=== PATIENT | female | born 1955 | race Caucasian/White ===

== ENCOUNTER 2018-02-02 16:06 | Inpatient (IN) | payer MEDICARE, OTHER ==
[2018-02-02 17:59] LABS: ADD MAN DIFF? NO
[2018-02-02 18:08] LABS: WHITE BLOOD COUNT 7.9 10^3/ul (4.8-10.8)
[2018-02-02 18:08] LABS: BASOPHILS % 0.5 % (0.0-2.0); EOSINOPHILS # 0.2 10^3/ul (0.0-0.5); EOSINOPHILS % 2.8 % (0.0-7.0); HEMATOCRIT 37.7 % (37.0-47.0); LYMPHOCYTES # 2.2 10^3/ul (0.8-2.9); LYMPHOCYTES % 28.2 % (15.0-51.0); MEAN CORPUSCULAR HEMOGLOBIN 31.1 pg (29.0-33.0); MEAN CORPUSCULAR HGB CONC 34.5 g/dl (32.0-37.0); MEAN CORPUSCULAR VOLUME 90.2 fl (82.0-101.0); MEAN PLATELET VOLUME 10.2 fl (7.4-10.4); MONOCYTE # 0.4 10^3/ul (0.3-0.9); MONOCYTES % 5.6 % (0.0-11.0); NEUTROPHIL # 4.9 10^3/ul (1.6-7.5); NEUTROPHILS % 62.8 % (39.0-77.0); PLATELET COUNT 263 10^3/UL (140-415); RED BLOOD COUNT 4.18 10^6/ul (4.20-5.40); RED CELL DISTRIBUTION WIDTH 12.7 % (11.5-14.5)
[2018-02-02 18:19] LABS: ADD UMIC YES; UR ASCORBIC ACID NEGATIVE (NEGATIVE); UR BACTERIA FEW /HPF (NONE SEEN); UR BILIRUBIN (Dip) NEGATIVE (NEGATIVE); UR BLOOD (Dip) 1+ mg/dL (NEGATIVE); UR CLARITY CLEAR (CLEAR); UR COLOR YELLOW (YELLOW); UR GLUCOSE (Dip) 1+ mg/dL (NEGATIVE); UR KETONES (Dip) NEGATIVE (NEGATIVE); UR LEUKOCYTE ESTERASE (Dip) NEGATIVE Leu/ul (NEGATIVE); UR NITRITE (Dip) NEGATIVE (NEGATIVE); UR RBC 2 /HPF (0-5); UR SPECIFIC GRAVITY (Dip) 1.015 (1.003-1.030); UR SQUAMOUS EPITHELIAL CELL FEW /HPF (FEW); UR TOTAL PROTEIN (Dip) NEGATIVE (NEGATIVE); UR UROBILINOGEN (Dip) NEGATIVE (NEGATIVE); UR WBC 1 /HPF (0-5)
[2018-02-02 18:23] LABS: INR 0.89; PROTIME 12.1 Sec (11.9-14.9); PT RATIO 0.9
[2018-02-02 18:24] LABS: PARTIAL THROMBOPLASTIN TIME 31.9 Sec (23.0-35.0)
[2018-02-02 18:26] LABS: ANION GAP 16 (8-16); BLOOD UREA NITROGEN 24 mg/dl (7-20); CALCIUM 11.1 mg/dl (8.4-10.2); CARBON DIOXIDE 26 mmol/L (21-31); CHLORIDE 103 mmol/L (97-110); CHOL/HDL RATIO 3.4 RATIO; CHOLESTEROL 178 mg/dl (100-200); CREATININE 0.88 mg/dl (0.44-1.00); GLUCOSE 155 mg/dl (70-220); HDL CHOLESTEROL 52 mg/dl (35-98); LDL CHOLESTEROL,CALCULATED 73 mg/dl; POTASSIUM 3.5 mmol/L (3.5-5.1); SODIUM 141 mmol/L (135-144); TRIGLYCERIDES 264 mg/dl (0-149)
[2018-02-02 18:34] LABS: AMPHETAMINE/METHAMPHETAMINE Negative (NEGATIVE); BARBITURATES Negative (NEGATIVE); BENZODIAZEPINES Negative (NEGATIVE); CANNABINOIDS Negative (NEGATIVE); COCAINE Negative (NEGATIVE); OPIATES Negative (NEGATIVE)
[2018-02-02 18:37] LABS: TROPONIN-I < 0.012 ng/ml (0.000-0.120)
[2018-02-02 18:41] LABS: HEMOGLOBIN A1C 6.8 % (0-5.9)
[2018-02-02] MEDS ORDERED: GLUCAGON 1 MG INJ IM (20:30)
[2018-02-02] MEDS ORDERED: NACL 0.9% 3 ML SYG IV (20:30)
[2018-02-02] MEDS ORDERED: BISACODYL (EC) 5 MG TAB PO (20:30)
[2018-02-02] MEDS ORDERED: GLUCOSE GEL 15 GRAM TUBE PO ×2 (20:30)
[2018-02-02] MEDS ORDERED: ONDANSETRON 4 MG INJ IV (20:30)
[2018-02-02] MEDS ORDERED: DOCUSATE SODIUM 100 MG CAP PO (20:30)
[2018-02-02] MEDS ORDERED: GLUCOSE GEL 15 GRAM TUBE BUCCAL (20:30)
[2018-02-02] MEDS ORDERED: DEXTROSE 50% 50 ML SYRINGE IV ×2 (20:30)
[2018-02-02] MEDS ORDERED: hydrALAzine 20 MG INJ IV (20:30)
[2018-02-02] MEDS ORDERED: ACETAMINOPHEN 325 MG TAB PO (20:30)
[2018-02-02] MEDS: ASPIRIN 325 MG TAB PO (20:48)
[2018-02-02] MEDS: INSULIN ASPART [NOVOLOG] 3 ML PEN SC (21:00)
[2018-02-02] MEDS ORDERED: METOPROLOL (XL) 25 MG TAB PO (21:00)
[2018-02-03] MEDS: ACCU-CHEK XX (02:00)
[2018-02-03] MEDS: ATORVASTATIN 40 MG TAB PO ×2 (02:09→21:09)
[2018-02-03 06:02] LABS: ADD MAN DIFF? NO
[2018-02-03 06:03] LABS: WHITE BLOOD COUNT 7.1 10^3/ul (4.8-10.8)
[2018-02-03 06:03] LABS: BASOPHILS % 0.4 % (0.0-2.0); EOSINOPHILS # 0.3 10^3/ul (0.0-0.5); HEMATOCRIT 32.5 % (37.0-47.0); HEMOGLOBIN 11.2 g/dl (12.0-16.0); LYMPHOCYTES # 3.1 10^3/ul (0.8-2.9); LYMPHOCYTES % 43.7 % (15.0-51.0); MEAN CORPUSCULAR HGB CONC 34.5 g/dl (32.0-37.0); MEAN PLATELET VOLUME 10.3 fl (7.4-10.4); MONOCYTE # 0.5 10^3/ul (0.3-0.9); MONOCYTES % 7.4 % (0.0-11.0); NEUTROPHIL # 3.1 10^3/ul (1.6-7.5); NEUTROPHILS % 44.4 % (39.0-77.0); PLATELET COUNT 206 10^3/UL (140-415); RED BLOOD COUNT 3.61 10^6/ul (4.20-5.40); RED CELL DISTRIBUTION WIDTH 12.8 % (11.5-14.5)
[2018-02-03 06:41] LABS: ALANINE AMINOTRANSFERASE 37 IU/L (13-69); ALBUMIN 3.1 g/dl (3.3-4.9); ALBUMIN/GLOBULIN RATIO 1.03; ALKALINE PHOSPHATASE 75 IU/L (42-121); ANION GAP 9 (8-16); ASPARTATE AMINO TRANSFERASE 20 IU/L (15-46); BILIRUBIN,INDIRECT 0.1 mg/dl (0-1.1); BILIRUBIN,TOTAL 0.1 mg/dl (0.2-1.3); BLOOD UREA NITROGEN 25 mg/dl (7-20); CALCIUM 9.8 mg/dl (8.4-10.2); CARBON DIOXIDE 31 mmol/L (21-31); CHLORIDE 106 mmol/L (97-110); CREATININE 0.79 mg/dl (0.44-1.00); GLUCOSE 152 mg/dl (70-220); MAGNESIUM 1.5 mg/dl (1.7-2.5); POTASSIUM 3.4 mmol/L (3.5-5.1); SODIUM 143 mmol/L (135-144); TOTAL PROTEIN 6.1 g/dl (6.1-8.1)
[2018-02-03] MEDS: CALCIUM/VITAMIN D (500/200) TAB PO (08:07)
[2018-02-03] MEDS: ASPIRIN (EC) 81 MG TAB PO (08:07)
[2018-02-03] MEDS: INSULIN ASPART [NOVOLOG] 3 ML PEN SC ×4 (08:56→21:00)
[2018-02-03 09:13] LABS: HEMOGLOBIN A1C 6.9 % (0-5.9)
[2018-02-03] MEDS: INFLUENZA VIRUS VACCINE 0.5 ML (DISPENSING) IM* (14:37)
[2018-02-03] MEDS: MAGNESIUM SULFATE 2 GM/50 ML 50 ML IVPB (14:44)
[2018-02-03] MEDS: LORAZEPAM 2 MG INJ IV (14:44)
[2018-02-03] MEDS: METOPROLOL (XL) 25 MG TAB PO (21:10)
[2018-02-03] MEDS: predniSONE 20 MG TAB PO (21:10)
[2018-02-04] MEDS: ACCU-CHEK XX (02:00)
[2018-02-04 06:34] LABS: BLOOD UREA NITROGEN 29 mg/dl (7-20); CALCIUM 9.5 mg/dl (8.4-10.2); CARBON DIOXIDE 24 mmol/L (21-31); CHLORIDE 106 mmol/L (97-110); CREATININE 0.66 mg/dl (0.44-1.00); GLUCOSE 342 mg/dl (70-220); MAGNESIUM 1.8 mg/dl (1.7-2.5); SODIUM 143 mmol/L (135-144)
[2018-02-04 06:35] LABS: C-REACTIVE PROTEIN < 0.5 mg/dl (0.0-0.9)
[2018-02-04] MEDS: INSULIN ASPART [NOVOLOG] 3 ML PEN SC ×5 (07:57→21:34)
[2018-02-04] MEDS: predniSONE 20 MG TAB PO (08:08)
[2018-02-04] MEDS: CALCIUM/VITAMIN D (500/200) TAB PO (08:08)
[2018-02-04] MEDS: ASPIRIN (EC) 81 MG TAB PO (08:08)
[2018-02-04] MEDS: METOPROLOL (XL) 25 MG TAB PO ×2 (08:09→21:25)
[2018-02-04 08:22] LABS: ERYTHROCYTE SEDIMENTATION RATE 26 mm/Hr (0-30)
[2018-02-04 09:27] LABS: ANION GAP 13 (5-13)
[2018-02-04] MEDS: INSULIN GLARGINE [LANTus] (100 UNITS/ML) SYG SC (15:01)
[2018-02-04] MEDS: ATORVASTATIN 40 MG TAB PO (21:25)
[2018-02-05] MEDS: ACCU-CHEK XX (02:00)
[2018-02-05] MEDS: DIPHENHYDRAMINE 25 MG CAP PO (06:04)
[2018-02-05] MEDS ORDERED: glipiZIDE 5 MG TAB PO (07:00)
[2018-02-05] MEDS: ASPIRIN (EC) 81 MG TAB PO (08:25)
[2018-02-05] MEDS: CALCIUM/VITAMIN D (500/200) TAB PO (08:25)
[2018-02-05] MEDS: metFORMIN 500 MG TAB PO (08:26)
[2018-02-05] MEDS: GABAPENTIN 100 MG CAP PO (08:26)
[2018-02-05] MEDS: METOPROLOL (XL) 25 MG TAB PO (08:30)
[2018-02-05] MEDS: INSULIN ASPART [NOVOLOG] 3 ML PEN SC ×2 (08:36→12:00)
[2018-02-05] MEDS: INSULIN GLARGINE [LANTus] (100 UNITS/ML) SYG SC (08:42)
== END 2018-02-05 16:10 | disposition home or self-care (01) | DRG 69 ==
LOC: 6WM 20:47 → E/R 16:06
DX: G45.9 Transient cerebral ischemic attack, unspecified (principal); E83.42 Hypomagnesemia; E11.9 Type 2 diabetes mellitus without complications; G35 Multiple sclerosis; I10 Essential (primary) hypertension; Z86.73 Personal history of transient ischemic attack (TIA), and cerebral infarction without residual deficits; Z89.9 Acquired absence of limb, unspecified
CPT/HCPCS: 70450; 70553; 71045; 80048; 80053; 80061; 80307; 81001; 82962; 83036; 83735; 84443; 84484; 85025; 85610; 85651; 85730; 86140; 90686; 92610; 93005; 93306; 97161; 97166; 99285-25; G0378

== ENCOUNTER 2018-03-17 12:41 | Emergency (ER) | payer MEDICARE, OTHER | END 2018-03-17 16:18 | disposition home or self-care (01) | LOC: FTE 12:41 | DX: M19.042 Primary osteoarthritis, left hand (principal); M19.041 Primary osteoarthritis, right hand; E11.9 Type 2 diabetes mellitus without complications; I10 Essential (primary) hypertension; Z79.82 Long term (current) use of aspirin; Z79.84 Long term (current) use of oral hypoglycemic drugs | CPT/HCPCS: 73130; 73130-50; 99284-25 ==